=== PATIENT | female | born 1995 | race Caucasian/White ===

== ENCOUNTER 2020-03-27 11:36 | Emergency (ER) | payer BC ==
[~2020-03-27] VITALS: Ht 160 cm; Wt 47.7 kg
[~2020-03-27 11:36] MED LIST: LEVAQUIN 5500 MG/TA1 PO; PREDNISONE20 MG PO; TESSALON P100 MG/CAP PO
[2020-03-27 11:40] VITALS: BP 117/76; TEMP 98.2
[2020-03-27] MEDS ORDERED: PROZAC 20MG20 MG PO (11:47)
[2020-03-27] MEDS ORDERED: PERIACTIN 4MG TA4 MG PO (11:47)
[2020-03-27 12:59] VITALS: PULSE 72
== END 2020-03-27 12:59 | disposition home or self-care (01) ==
LOC: COL.ER 11:36
DX: T78.40XA Allergy, unspecified, initial encounter (principal); S90.561A Insect bite (nonvenomous), right ankle, initial encounter; F41.9 Anxiety disorder, unspecified; F32.9 Major depressive disorder, single episode, unspecified; W57.XXXA Bitten or stung by nonvenomous insect and other nonvenomous arthropods, initial encounter
CPT/HCPCS: J8540

== ENCOUNTER 2020-09-06 17:19 | Emergency (ER) | payer BC ==
[~2020-09-06] VITALS: Ht 160 cm; Wt 46.8 kg
[~2020-09-06 17:19] MED LIST changes: +PERIACTIN 4MG TA4 MG PO; +PROZAC 20MG20 MG PO
[2020-09-06 17:27] VITALS: TEMP 99.2
[2020-09-06 18:04] LABS: BASO % 0.3 % (0.0-2.0); EOS # 0.1 (0.0-0.7); EOS % 0.9 % (0-4.0); GRAN % 67.1 % (42.2-75.2); HEMATOCRIT 41.5 % (37.0-47.0); HEMOGLOBIN 14.4 g/dl (12.5-16.0); LYMPH # 2.7 (1.2-3.4); LYMPH % 25.7 % (20.0-51.0); MEAN CELL VOLUME 87 fl (80.0-100.0); MEAN CORPUSCULAR HEMOGLOBIN 30 pg (27.0-31.0); MEAN CORPUSCULAR HGB CONC 35 g/dl (33.0-37.0); MEAN PLATELET VOLUME 10.3 fl (7.4-10.4); MONO # 0.6 (0.1-0.6); MONO % 5.7 % (1.7-9.3); PLATELET COUNT 318 K/mm3 (130-400); RED BLOOD COUNT 4.75 M/mm3 (4.10-5.30); REDCELL DISTRIBUTION WIDTH-CV 11.8 % (11.5-14.5)
[2020-09-06] MEDS ORDERED: EXCEDRIN1 TAB PO (18:04)
[2020-09-06] MEDS ORDERED: MIRENA52 MG IY (18:04)
[2020-09-06 18:13] LABS: COLLECTION METHOD CLEAN CATCH
[2020-09-06 18:19] LABS: ALANINE AMINOTRANSFERASE 14 U/L (4-34); ALBUMIN 5.1 gm/dL (3.5-5.0); ALKALINE PHOSPHATASE 60 U/L (50-136); ANION GAP 13 mmol/L (7-16); AST,SGOT 23 U/L (15-37); BILIRUBIN,TOTAL 0.5 mg/dL (0.0-1.0); BLOOD UREA NITROGEN 10 mg/dL (7-17); C-REACTIVE PROTEIN < 0.5 mg/dL (0.0-0.9); CALCIUM 9.5 mg/dL (8.4-10.2); CARBON DIOXIDE 24 mmol/L (22-30); CHLORIDE 101 mmol/L (98-107); CREATININE, serum 0.59 (0.52-1.25); GLUCOSE 93 mg/dL (74-106); LIPASE 142 U/L (23-300); POTASSIUM 3.6 mmol/L (3.4-5.0); SODIUM 138 mmol/L (137-145); TOTAL PROTEIN 8.2 gm/dL (6.4-8.2)
[2020-09-06 18:29] LABS: PH 6 (5-8); SQUAMOUS EPITHELIAL None Seen /hpf; URINE APPEARANCE Clear; URINE BACTERIA None Seen /hpf; URINE BILIRUBIN Negative (NEGATIVE); URINE BLOOD Negative (NEGATIVE); URINE COLOR Straw; URINE GLUCOSE Negative (NEGATIVE); URINE KETONE Trace (NEGATIVE); URINE LEUKOCYTE ESTERASE Negative (NEGATIVE); URINE NITRATE Negative (NEGATIVE); URINE PROTEIN(semi-quant) Negative (NEGATIVE); URINE RBC None Seen /hpf; URINE UROBILINOGEN Negative (NEGATIVE)
[2020-09-06 19:44] VITALS: BP 126/77; PULSE 96
== END 2020-09-06 19:50 | disposition home or self-care (01) ==
LOC: COL.ER 17:19
PROVIDERS: Physician Assistant
DX: R10.31 Right lower quadrant pain (principal); Z87.42 Personal history of other diseases of the female genital tract; Z79.82 Long term (current) use of aspirin
CPT/HCPCS: J1885; J2405; J7030; Q9967